=== PATIENT | male | born 1960 | race Caucasian/White ===

== ENCOUNTER 2023-06-05 05:23 | Inpatient (IN) | payer MEDICARE, SELFPAY ==
[2023-06-05] VITALS (18 sets, daily range): BP systolic 115–176; BP diastolic 71–127; PULSE 51–77; RESP 13–181; TEMP 36.2–36.7; O2SAT 94–98; BMI 25.9; BMI 26.0
--- NOTE | 2023-06-05 05:28 | EKG12_ITS ---
Test Reason : AM EKG Blood Pressure : / mmHG Vent. Rate : 062 BPM Atrial Rate : 062 BPM P-R Int : 150 ms QRS Dur : 092 ms QT Int : 420 ms P-R-T Axes : 073 061 077 degrees QTc Int : 426 ms Normal sinus rhythm Indeterminate axis Low voltage QRS Borderline ECG When compared with ECG of 05-JUN-2023 12:24, MANUAL COMPARISON REQUIRED, DATA IS UNCONFIRMED Confirmed by VIOLET FISH, NARENDRA ([id number]), assistant production editor CATALINA HEATON ([id number]) on 06/06/2023 12:57:47 PM Referred By: LISA Confirmed By:NARENDRA LAZO MD
--- NOTE | 2023-06-05 05:28 | RAD_ITS ---
INDICATION: chest pain EXAMINATION/TECHNIQUE: X-RAY - XR Chest 1 View COMPARISON: None. FINDINGS: LINES/DEVICES: None. LUNGS: No pulmonary edema or focal airspace consolidation. Small linear opacity left lower lung. No sizable pleural effusion. No pneumothorax detected. MEDIASTINUM AND CARDIOVASCULAR STRUCTURES: Heart size within normal limits. Mediastinal contours unremarkable. BONES AND SOFT TISSUES: No acute findings. RAD/Chest 1 View (Portable) IMPRESSION: Mild left basilar linear scarring versus atelectasis. Otherwise, no acute cardiopulmonary disease. Electronically Signed: Yaron Seay MD at 6:17 EDT ,
[2023-06-05 05:35] LABS: Absolute Lymphocyte Count 1.61 X10^3/uL (0.83-4.51); Basophil# 0.05 X10^3/uL; Basophil% 0.2 % (0-1); Eosinophil# 0.02 X10^3/uL; Eosinophils% 0.1 % (0-5); Hematocrit 51.9 % (40-54); Hemoglobin 17.8 g/dL (13.0-16.5); Lymphocyte # 1.61 X10^3/ul (0.83-4.51); Lymphocyte % 7.4 % (19-41); Mean Corp Hgb Conc 34.3 g/dL (32-36); Mean Corpuscular Hgb 30.5 pg (27.0-32.0); Mean Corpuscular Volume 88.9 fL (80-94); Mean Platelet Vol. 9.5 fl (6.2-12.0); Monocyte# 0.94 X10^3/uL; Monocyte% 4.3 % (0-10); NRBC Flagged by Analyzer 0 % (0-5); Neutrophil # 18.95 X10^3/uL (2.7-7.7); Neutrophil % 87.4 % (47-70); Platelet Count 387 K/mm3 (150-450); RBC Distribution Width CV 13.1 % (11.6-14.6); RBC Distribution Width SD 42.4 fl (35.1-43.9); Red Blood Count 5.84 M/mm3 (4.6-6.2); White Blood Count 21.7 K/mm3 (4.4-11.0)
[2023-06-05] MEDS: Ondansetron 4 MG/2 ML Vial IV (05:39)
[2023-06-05] MEDS: Aspirin 81 MG TAB.CHEW 324 MG PO (05:40)
--- NOTE | 2023-06-05 05:45 | CT_ITS ---
INDICATION: chest pain/ back pain EXAMINATION: CTA Chest and CTA Abdomen and Pelvis W/ Contrast Injection (and W/O Contrast Images if performed) TECHNIQUE: Helically acquired images were obtained of the chest, abdomen, and pelvis following IV contrast. CT angiogram protocol utilized with 2-D and 3-D reconstructions. A radiation dose optimization technique was used for this scan. IV Contrast dosage and agent: 100 cc [id number] Oral contrast: None. COMPARISON: None. FINDINGS: ----Chest: LUNGS, PLEURA AND LARGE AIRWAYS: No pulmonary edema, mass, consolidation or infiltrate. Mild linear scarring right middle lobe. Couple of punctate peripheral nodules within bilateral lower lobes, no larger than 4 mm and one of which is calcified (posterior left lung base). No significant pleural effusion or thickening. No pneumothorax. THYROID: Faint 5 mm enhancing versus calcified nodule within left lobe of thyroid gland. HEART AND PERICARDIUM: Heart size within normal limits. No significant pericardial effusion. VESSELS: No thoracic aortic aneurysm or dissection. Great vessels are patent with no significant stenosis. Aberrant right subclavian artery is retroesophageal in course. No pulmonary arterial filling defects identified. MEDIASTINUM AND RL: No mediastinal or hilar adenopathy. Esophagus is unremarkable. BONES: Intact with no suspicious osseous lesion. Adequate alignment of spine with preserved vertebral body heights and disc spaces. No significant spinal canal stenosis. ----Abdomen/Pelvis: LIVER: Fatty infiltration of liver. Small peripheral focus of patchy enhancement within anterior left lobe of liver measures up to 15 mm diameter, with small traversing vessel. Subcentimeter faint focus of enhancement within posterior right lobe of liver (segment 7, axial image 111). GALLBLADDER AND BILIARY TREE: No calcified gallstones. No significant biliary ductal dilation. PANCREAS: No discrete mass or peripancreatic edema. SPLEEN: Normal size without focal cystic or solid mass. ADRENAL GLANDS: Unremarkable. KIDNEYS AND URETERS: Normal renal size and position. No hydronephrosis. No concerning lesion. Simple appearing 12 mm cyst at lower pole of left kidney requiring no additional follow-up. PERITONEUM: No peritoneal free air or significant free fluid. No other fluid collection. BOWEL: Normal appendix posterior to cecum within right lower quadrant. No bowel obstruction or significant bowel thickening. No focal inflammatory change. LYMPH NODES: No enlarged mesenteric or retroperitoneal lymph nodes. VESSELS: Mild to moderate aortoiliac atherosclerosis with no aortic aneurysm or dissection. Aortic branch vessels with no significant stenosis. Patent celiac artery, superior mesenteric artery, bilateral renal arteries, inferior mesenteric artery and bilateral iliac arteries. URINARY BLADDER: Unremarkable as visualized. REPRODUCTIVE ORGANS: Slightly enlarged prostate gland with small dystrophic calcifications. ABDOMINAL WALL: No acute findings or significant hernia defect. BONES: Mild skeletal degenerative changes. Adequate alignment of spine with preserved vertebral body heights and disc spaces. No significant spinal canal stenosis. CT/CTA Chst, Abd, Pel W and/or WO IMPRESSION: 1. Atherosclerosis with no aortic aneurysm or dissection. Incidental finding of aberrant right subclavian artery, anatomic variant. 2. No evidence of acute intrathoracic abnormality. There are few punctate pulmonary nodules, one of which is calcified. Findings likely benign post infectious etiology with no additional follow-up recommended at this time. 3. Hepatic steatosis with couple small enhancing foci within liver. Differential includes benign transient hepatic attenuation difference, flash filling hemangiomas, or less likely hepatic neoplasm. Follow-up as clinically warranted. 4. Other nonurgent findings within body of report. Electronically Signed: Yaron Seay MD at 7:10 EDT ,
--- NOTE | 2023-06-05 05:47 | EDS_ITS ---
HPI History of Present Illness Chief Complaint: Chest Pain Narrative Narrative: 62-year-old male presenting with chest pain. He states is in the left upper chest but also radiates to the right side of the chest. He does admit to some radiation into his back as well. Patient states he just saw a primary care provider for the first time in years few weeks ago. He was started on a PPI for chronic intermittent heartburn. Patient states he is getting intermittent chest pains on the left side of his chest and this is associated with nausea and vomiting. He notes that Friday was the worst of this until overnight. Patient states he had a couple of beers last night and ate some pasta with chicken. He states that at about 10 PM last night he started having severe chest pain and has been vomiting. He states that with the chest pain comes the back pain. He states he has no medical problems. He states he has not lab work in a long time. He is a smoker and smokes a pack of cigarettes per day. No previous stress test. PE Risk Factors: Negative for Recent Travel/Surgery, Recent Immobilization, Prior DVT or PE, Cancer or OCP + Smoking + >/=35 PFSH PFSH Medical History no medical history Home Medications NK 06/05/23 [History Last Taken Unknown] Allergy/AdvReac Type Severity Reaction Status Date / Time No Known Allergies Allergy Verified 06/05/23 05:30 Surgical History no surgical history Social History Smoking Status: Current every day smoker tobacco type: cigarettes ROS ROS ED Constitutional Constitutional ED: Denies chills or fever(s) Eyes Eyes: Denies blurry vision or change in vision ENT ENT ED: Denies rhinorrhea or sore throat Cardiovascular Cardiovascular: Reports chest pain Respiratory/Chest Respiratory/Chest: Denies cough or dyspnea Gastrointestinal Gastrointestinal: Reports nausea and vomiting Genitourinary Genitourinary ED: Denies dysuria or hematuria Musculoskeletal Musculoskeletal: Denies arthralgias or back pain Integumentary Denies abscess Neurologic Neurologic: Denies headache(s) or paresthesias Psychiatric Psychiatric: Denies anxiety or depression EXAM Physical Exam Const Vital Signs: 06/05/23 05:24 06/05/23 05:24 06/05/23 05:50 Temperature 97.1 F L Temperature Source Temporal Pulse Rate 73 73 Respiratory Rate 18 Respiratory Effort Blood Pressure 175/127 H 171/91 H 176/101 H Blood Pressure Mean 143 117 Pulse Ox 97 Oxygen Delivery Method 06/05/23 05:58 06/05/23 06:08 06/05/23 05:28 Temperature Temperature Source Pulse Rate 68 71 Respiratory Rate Respiratory Effort Blood Pressure 137/91 H 137/85 H Blood Pressure Mean Pulse Ox Oxygen Delivery Method Room Air 06/05/23 05:28 06/05/23 06:24 Temperature Temperature Source Pulse Rate 51 L Respiratory Rate 16 Respiratory Effort Normal Non-Labored Blood Pressure 119/76 Blood Pressure Mean 90 Pulse Ox 97 Oxygen Delivery Method Room Air Positive well nourished General Appearance ED: NAD; Negative for pallor HEENT Reports TM's clear and moist mucous membranes normocephalic and atraumatic Tympanic Membrane ED: Yes TM's clear Eyes PERRL and EOMs intact bilaterally Chest Wall inspection of chest normal and palpation of chest normal Resp normal respiratory effort Auscultation: Negative for rales, rhonchi or wheezes Cardio regular rate and regular rhythm GI normal to inspection, nondistended, normoactive bowel sounds Back/Spine no CVA tenderness Neuro oriented x3 and CN's II-XII intact bilaterally Sensorium / Orientation: awake and alert Motor Exam: strength 5/5 throughout Psych mental status grossly normal Skin no rashes or lesions noted General Skin Exam: Negative for jaundice or pallor Heart Score History: Moderately Suspicious ECG: Normal Age: >45 - <65 years Risk Factors: 1 or 2 Risk Factors Troponin: >/=3 x Normal Limit Score: 5 MDM MDM MDM Narrative Medical decision making narrative: 62-year-old male presenting with nausea, being since 10 PM last night. He said chest pain on and off for few months and it sound like it got worse last Friday. Overnight he has been having severe chest pain which she states is 8 of 10. He is a smoker and does not know if he has any medical history because he has not had lab work often. He states he recently established with a new physician and was started on a PPI for chronic acid reflux problems. Differential includes but is not limited to STEMI, NSTEMI, CHF, PE, aortic dissection, pneumonia, Boerhaave's, pneumothorax, muscle strain, costochondritis. CBC to assess white blood cell count, hemoglobin, platelets, differential. BMP renal function, electrolytes, glucose, anion gap. LFTs to assess liver function. Lipase to assess for pancreatitis. Initially medicated with nitroglycerin which did not help his chest pain. He was then given 4 mg of morphine. I discussed him with Dr. Berumen given that his troponin was 6776. EKG shows a normal sinus rhythm with a ventricular rate of 72 bpm without sign of ST elevation or depression. EKG was reviewed with Dr. Berumen and does not show evidence of STEMI. CBC shows a leukocytosis of 21.7. Hemoglobin concentrated at 17.8. Platelets 387. Renal function and electrolytes otherwise unremarkable. LFTs and lipase unremarkable. Chest x-ray on my interpretation shows no acute cardiopulmonary process. Radiologist services and agrees. Since patient is having continued chest pain I did discuss this again with Dr. Berumen and he recommended taking him to the [facility]ation [facility]. I am awaiting a CTA chest abdomen pelvis but I do not see any evidence of dissection or PE on this. CTA chest on pelvis was interpreted by radiologist as negative for dissection or PE, but there is evidence of pulmonary nodules. Discussed with the hospitalist since the patient is going to the [facility]. Patient was started on heparin. He is already given aspirin. He started on nitroglycerin drip. I think the patient's white blood cell count is likely reactive as there is no other evidence of infection. His vital signs of been stable here. All questions were answered Impression: 1. Chest pain 2. NSTEMI 3. Nausea/vomiting 4. Pulmonary nodules Lab Data Attestation: I reviewed the patient's lab results. Labs: Laboratory Results - last 24 hr 06/05/23 05:28 WBC 21.7 H RBC 5.84 Hgb 17.8 H Hct 51.9 MCV 88.9 MCH 30.5 MCHC 34.3 RDW Std Deviation 42.4 RDW Coeff of Purnima 13.1 Plt Count 387 MPV 9.5 Immature Gran % (Auto) 0.600 Neut % (Auto) 87.4 H Lymph % (Auto) 7.4 L Real % (Auto) 4.3 Eos % (Auto) 0.1 Baso % (Auto) 0.2 Absolute Neuts (auto) 19.0 H Absolute Lymphs (auto) 1.61 Nucleated RBC % 0 PT 13.4 INR 1.0 APTT 29.5 Sodium 138 Potassium 4.1 Chloride 106 Carbon Dioxide 26.0 Anion Gap 6 BUN 15 Creatinine 1.03 Estim Creat Clear Calc 70.10 Est GFR (MDRD) Af Amer 93 Est GFR (MDRD) Non-Af 77 BUN/Creatinine Ratio 14.6 Glucose 145 H Calcium 9.1 Total Bilirubin 0.70 Direct Bilirubin 0.16 AST 77 H ALT 38 Alkaline Phosphatase 122 H Troponin I High Sens 6776 H* Total Protein 8.1 Albumin 4.5 Globulin 3.6 Lipase 43 Radiography Diagnostic Testing: Clinical Impression(s) from Imaging Studies Chest X-Ray 06/05/23 05:28 IMPRESSION: Mild left basilar linear scarring versus atelectasis. Otherwise, no acute cardiopulmonary disease. Electronically Signed: Yaron Seay MD at 6:17 EDT , Chest/Abdomen/Pelvis CTA 06/05/23 05:45 IMPRESSION: 1. Atherosclerosis with no aortic aneurysm or dissection. Incidental finding of aberrant right subclavian artery, anatomic variant. 2. No evidence of acute intrathoracic abnormality. There are few punctate pulmonary nodules, one of which is calcified. Findings likely benign post infectious etiology with no additional follow-up recommended at this time. 3. Hepatic steatosis with couple small enhancing foci within liver. Differential includes benign transient hepatic attenuation difference, flash filling hemangiomas, or less likely hepatic neoplasm. Follow-up as clinically warranted. 4. Other nonurgent findings within body of report. Electronically Signed: Yaron Seay MD at 7:10 EDT , Discharge Plan Triage Chief Complaint: Chest Pain ED Provider: Andrew Mathis Dx/Rx/DC Orders Primary Care Provider: Antoni Cooper
[2023-06-05] MEDS: Nitroglycerin SL (ED/IMG/CATH) 0.4 MG TABLET SL ×3 (05:50→06:08)
[2023-06-05 05:57] LABS: Anion Gap 6 (5-15); BUN 15 mg/dL (7-18); BUN/Creat Ratio 14.6 RATIO (10-20); Calcium,Total 9.1 mg/dL (8.5-10.1); Chloride 106 mmol/L (98-107); Creatinine, Serum 1.03 mg/dL (0.70-1.30); EST Glomerular Filtration Rate 77 mL/min (>60); Est Glom Filt Rate - Afr Amer 93 mL/min (>60); Glucose 145 mg/dL (74-106); Potassium 4.1 mmol/L (3.5-5.1); Sodium Level 138 mmol/L (136-145); Troponin-I HS (w/2H Reflex) 6776 pg/mL (3.0-78.0)
[2023-06-05 06:08] LABS: AST(SGOT) 77 U/L (15-37); Alanine Aminotransfer ALT/SGPT 38 U/L (16-61); Albumin, Serum 4.5 g/dL (3.2-5.0); Alkaline Phosphatase 122 U/L (45-117); Bilirubin, Direct 0.16 mg/dL (0.00-0.30); Globulin 3.6 g/dL (2.2-4.2); Lipase 43 U/L (13-75); Protein, Total 8.1 g/dL (6.4-8.2)
[2023-06-05] MEDS: Morphine 4 MG/ML Syringe IV (06:08)
[2023-06-05 06:16] LABS: Prothrombin Time (Protime)PT. 13.4 SECONDS (11.7-14.9)
[2023-06-05 06:17] LABS: Partial Thromboplast Time 29.5 Seconds (24.1-36.2)
--- NOTE | 2023-06-05 07:04 | NURSING ---
DR BERNARD FOR DR ALBERTO
--- NOTE | 2023-06-05 07:11 | NURSING ---
ICU 5 [facility]
--- NOTE | 2023-06-05 07:24 | ED.RN ---
Called report to [facility]
--- NOTE | 2023-06-05 07:25 | PCM.HP.STD ---
HPI - General General Date of Admission: 06/05/23 Date of Service: 06/05/23 Chief Complaint: Chest Pain HPI Narrative ERA HERNANDEZ, is a 62 M who presents [facility] Medical History (Updated 06/05/23 @ 07:[address] Marilou Ortiz, DO) Tobacco abuse Medical History no medical history Home Medications NK 06/05/23 [History Last Taken Unknown] Allergy/AdvReac Type Severity Reaction Status Date / Time No Known Allergies Allergy Verified 06/05/23 05:30 Surgical History no surgical history Social History Smoking Status: Current every day smoker tobacco type: cigarettes Vital Signs Vital Signs Vital Signs: 06/05/23 05:24 06/05/23 05:24 06/05/23 05:50 Temperature 97.1 F L Temperature Source Temporal Pulse Rate 73 73 Respiratory Rate 18 Respiratory Effort Blood Pressure 175/127 H 171/91 H 176/101 H Blood Pressure Mean 143 117 Pulse Ox 97 Oxygen Delivery Method 06/05/23 05:58 06/05/23 06:08 06/05/23 05:28 Temperature Temperature Source Pulse Rate 68 71 Respiratory Rate Respiratory Effort Blood Pressure 137/91 H 137/85 H Blood Pressure Mean Pulse Ox Oxygen Delivery Method Room Air 06/05/23 05:28 06/05/23 06:24 Temperature Temperature Source Pulse Rate 51 L Respiratory Rate 16 Respiratory Effort Normal Non-Labored Blood Pressure 119/76 Blood Pressure Mean 90 Pulse Ox 97 Oxygen Delivery Method Room Air Weight Weight: 77.564 kg Body Mass Index (BMI) 25.9 Results Lab / Micro Data 06/05/23 05:28 06/05/23 05:28 Labs: Laboratory Results - last 24 hr 06/05/23 05:28: WBC 21.7 H, RBC 5.84, Hgb 17.8 H, Hct 51.9, MCV 88.9, MCH 30.5, MCHC 34.3, RDW Std Deviation 42.4, RDW Coeff of Purnima 13.1, Plt Count 387, MPV 9.5, Immature Gran % (Auto) 0.600, Neut % (Auto) 87.4 H, Lymph % (Auto) 7.4 L, [place] % (Auto) 4.3, Eos % (Auto) 0.1, Baso % (Auto) 0.2, Absolute Neuts (auto) 19.0 H, Absolute Lymphs (auto) 1.61, Nucleated RBC % 0, PT 13.4, INR 1.0, APTT 29.5, Sodium 138, Potassium 4.1, Chloride 106, Carbon Dioxide 26.0, Anion Gap 6, BUN 15, Creatinine 1.03, Estim Creat Clear Calc 70.10, Est GFR (MDRD) Af Amer 93, Est GFR (MDRD) Non-Af 77, BUN/Creatinine Ratio 14.6, Glucose 145 H, Calcium 9.1, Total Bilirubin 0.70, Direct Bilirubin 0.16, AST 77 H, ALT 38, Alkaline Phosphatase 122 H, Troponin I High Sens 6776 H*, Total Protein 8.1, Albumin 4.5, Globulin 3.6, Lipase 43 Radiology Impression Chest X-Ray 06/05/23 05:28 IMPRESSION: Mild left basilar linear scarring versus atelectasis. Otherwise, no acute cardiopulmonary disease. Electronically Signed: Yaron Seay MD at 6:17 EDT , Chest/Abdomen/Pelvis CTA 06/05/23 05:45 IMPRESSION: 1. Atherosclerosis with no aortic aneurysm or dissection. Incidental finding of aberrant right subclavian artery, anatomic variant. 2. No evidence of acute intrathoracic abnormality. There are few punctate pulmonary nodules, one of which is calcified. Findings likely benign post infectious etiology with no additional follow-up recommended at this time. 3. Hepatic steatosis with couple small enhancing foci within liver. Differential includes benign transient hepatic attenuation difference, flash filling hemangiomas, or less likely hepatic neoplasm. Follow-up as clinically warranted. 4. Other nonurgent findings within body of report. 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 Hyperglycemia -No known history of diabetes -Check hemoglobin A1c -May be reactive Hepatic steatosis -Continue treatment of metabolic issues -We will recommend outpatient referral to gastroenterology Tobacco abuse -Recommend cessation -We will give the patient option for nicotine patch DVT prophylaxis -Lovenox subcu daily CODE STATUS Full code Charges/Coding Visit Charges Inpatient E&M: 44200 Init Hosp L2
[2023-06-05 07:32] LABS: Reflex Troponin-HS? (from REC) Y
--- NOTE | 2023-06-05 10:00 | EKG12_ITS ---
Test Reason : CP Blood Pressure : / mmHG Vent. Rate : 072 BPM Atrial Rate : 072 BPM P-R Int : 162 ms QRS Dur : 090 ms QT Int : 410 ms P-R-T Axes : 072 -30 030 degrees QTc Int : 448 ms Normal sinus rhythm Left axis deviation Low voltage QRS Cannot rule out Anteroseptal infarct , age undetermined Abnormal ECG Confirmed by LIVE FISH, ALEXIS ([id number]), video effects editor CATALINA HEATON ([id number]) on 06/09/2023 1:01:59 PM Referred By: Confirmed By:CHRISTIANO MANCINI MD
--- NOTE | 2023-06-05 10:01 | PCM.CONS.C ---
Assessment & Plan Assessment/Plan (1) NSTEMI, initial episode of care: PLAN: Treated with drug-eluting stent to the diagonal 1. Medical management for mild CAD in other vessels. Recommend aspirin, Brilinta, beta-victorina, statin. Check 2D echo to assess LV function. HPI Consult Data Date of Consult: 06/05/23 HPI Narrative Reason for Consultation: Non-STEMI HPI Narrative: ERA HERNANDEZ, is a 62 M who presents chest pain that has been going on since around 10 PM last night. His troponin was elevated, CT chest was negative for PE or dissection. He underwent urgent coronary angiography which revealed 100% occlusion of diagonal 1 that was treated with thrombectomy and drug-eluting stent placement. Patient's chest pain improved at the end of the procedure. He is being admitted to the CCU for further management of his non-STEMI. Review of systems: All systems reviewed. All system negative except that in [facility] Medical History (Updated 06/05/23 @ 09:51 by Kaycee Benitez) Acid reflux Hernia Tobacco abuse Medical History no medical history Home Medications NK 06/05/23 [History Last Taken Unknown] Allergy/AdvReac Type Severity Reaction Status Date / Time No Known Allergies Allergy Verified 06/05/23 05:30 Surgical History no surgical history Social History Smoking Status: Current every day smoker tobacco type: cigarettes Physical Exam Const alert and oriented x3 HEENT normocephalic Eyes no scleral icterus Resp normal respiratory effort Cardio regular rate Psych mental status grossly normal Risk Stratification Risk Stratification Applicable: No Charges/Coding Visit Charges Inpatient E&M: 08049 Init Hosp L2 Objective Data Vital Signs: Vital Signs Temp Pulse Resp BP Pulse Ox O2 Del Method 97.9 F 51 L 181 H 119/71 98 Room Air 06/05/23 07:25 06/05/23 07:25 06/05/23 07:25 06/05/23 07:25 06/05/23 07:25 06/05/23 07:25 Oxygen Delivery Method Room Air Weight: 171 lb 8.314 oz Body Mass Index (BMI) 26.0 Intake & Output: Intake and Output for Last 24 Hours 06/03/23 06/04/23 06/05/23 23:59 23:59 23:59 Intake Total 90 / 90 Balance 90 / 90 Lab / Micro Data 06/05/23 05:28 06/05/23 05:28 Labs: Laboratory Results - last 24 hr 06/05/23 05:28: WBC 21.7 H, RBC 5.84, Hgb 17.8 H, Hct 51.9, MCV 88.9, MCH 30.5, MCHC 34.3, RDW Std Deviation 42.4, RDW Coeff of Purnima 13.1, Plt Count 387, MPV 9.5, Immature Gran % (Auto) 0.600, Neut % (Auto) 87.4 H, Lymph % (Auto) 7.4 L, [place] % (Auto) 4.3, Eos % (Auto) 0.1, Baso % (Auto) 0.2, Absolute Neuts (auto) 19.0 H, Absolute Lymphs (auto) 1.61, Nucleated RBC % 0, PT 13.4, INR 1.0, APTT 29.5, Sodium 138, Potassium 4.1, Chloride 106, Carbon Dioxide 26.0, Anion Gap 6, BUN 15, Creatinine 1.03, Estim Creat Clear Calc 70.10, Est GFR (MDRD) Af Amer 93, Est GFR (MDRD) Non-Af 77, BUN/Creatinine Ratio 14.6, Glucose 145 H, Calcium 9.1, Total Bilirubin 0.70, Direct Bilirubin 0.16, AST 77 H, ALT 38, Alkaline Phosphatase 122 H, Troponin I High Sens 6776 H*, Total Protein 8.1, Albumin 4.5, Globulin 3.6, Lipase 43 Cardiology Labs/Tests 06/05/23 05:28: WBC 21.7 H, RBC 5.84, Hgb 17.8 H, Hct 51.9, MCV 88.9, MCH 30.5, MCHC 34.3, Plt Count 387, MPV 9.5, Immature Gran % (Auto) 0.600, Neut % (Auto) 87.4 H, Lymph % (Auto) 7.4 L, [place] % (Auto) 4.3, Eos % (Auto) 0.1, Baso % (Auto) 0.2, Absolute Neuts (auto) 19.0 H, Nucleated RBC % 0, PT 13.4, INR 1.0, APTT 29.5, Sodium 138, Potassium 4.1, Chloride 106, Carbon Dioxide 26.0, Anion Gap 6, BUN 15, Creatinine 1.03, Est GFR (MDRD) Af Amer 93, Est GFR (MDRD) Non-Af 77, BUN/Creatinine Ratio 14.6, Glucose 145 H, Calcium 9.1, Total Bilirubin 0.70, Direct Bilirubin 0.16 Rhythm: EKG: ECHO: Stress Test: Cardiac Cath: PCI: CT Surgery: Holter monitor: EPS: PPM: CXR: Chest CT Scan: Radiography Diagnostic Testing: Radiology Impression Chest X-Ray 06/05/23 05:28 IMPRESSION: Mild left basilar linear scarring versus atelectasis. Otherwise, no acute cardiopulmonary disease. Electronically Signed: Yaron Seay MD at 6:17 EDT , Chest/Abdomen/Pelvis CTA 06/05/23 05:45 IMPRESSION: 1. Atherosclerosis with no aortic aneurysm or dissection. Incidental finding of aberrant right subclavian artery, anatomic variant. 2. No evidence of acute intrathoracic abnormality. There are few punctate pulmonary nodules, one of which is calcified. Findings likely benign post infectious etiology with no additional follow-up recommended at this time. 3. Hepatic steatosis with couple small enhancing foci within liver. Differential includes benign transient hepatic attenuation difference, flash filling hemangiomas, or less likely hepatic neoplasm. Follow-up as clinically warranted. 4. Other nonurgent findings within body of report. Electronically Signed: Yaron Seay MD at 7:10 EDT ,
--- NOTE | 2023-06-05 10:30 | NURSING ---
patient came to floor on integrillin gtt no order placed, discussed with Dr. Berumen, order to D/C integrillin.
[2023-06-05] MEDS: 0.9% Normal Saline 1,000 ML 75 ML IV (10:48)
--- NOTE | 2023-06-05 10:49 | CL.I_ITS ---
Patient Name: ERA HERNANDEZ Study Date: 06/05/2023 Performing: Josey Berumen MD Ht: 68 inches 172.72 cm : 1960 Wt: 170.99 lbs 77.56 kg Age: 62 Gender: male BSA: 1.91 PROCEDURE(S) PERFORMED DC02-(33824)LHC/COR IC12-(28524/[id number])SABRINA W/WO PTCA, SINGLE CORONARY ARTERY IC17-(85344)CORONARY MECHANICAL THROMBECTOMY (ANGIOJET,PENUMBRA) CLINICAL PROFILE AND CO-MORBIDITIES Indications: ACS <= 24 hrs Heart Failure: None Stress/Imaging Stress/Image Study Performed: No CAD Presentations: Non-STEMI. Symptom onset Date/Time: 06/04/23 22:00:00 Time Estimated CONCLUSIONS CAD as described. No significant aortic stenosis. Successful thrombectomy and drug-eluting stent placement to diagonal 1. RECOMMENDATIONS DESCRIPTION OF PROCEDURE The patient arrived to the procedure lab. The risks and benefits of the procedure as well as a full description of our services here and lack of surgical backup were fully explained to the patient and/or their significant other prior to the catheterization. The Timeout was completed, verifying the correct patient and procedure. The patient's procedural site was prepped and draped in the usual fashion. Local anesthetic was given subcutaneously to right radial region with Lidocaine 2%. Using a modified Seldinger technique, arterial access was obtained via the right radial artery, a 6Fr sheath was inserted.. Left Coronary Artery selective angiography was performed in multiple views using a 5 Fr. JL3.5 catheter. Right Coronary Artery selective angiography was then performed in multiple views using a 5 Fr. JR 4 catheterThe images were reviewed and options discussed. A decision was then made to proceed with an Intervention, IVUS or other adjunct procedure. XB 3.0 Guide catheter was inserted and engaged into the LCA. BMW Guide wire was advanced to the 1st Diagonal. WHISPER Guide wire was advanced to the 1st Diagonal. Priority One inserted Pass # 1 Priority One Removed 2.0X12 EMERGE Balloon catheter was inserted. Balloon catheter was advanced across lesion in the first diagonal, proximal. PTCA balloon inflated at 8 atms for 12 secs. PTCA balloon inflated at 8 atms for 10 secs. 2.0X12 RESOLUTE Drug Eluting stent was inserted. Drug Eluting stent was advanced across the lesion in the first diagonal, proximal. Angiogram performed post stent deployment. The arterial sheath was pulled and a TR Band was applied for hemostasis-14 CC AIR CORONARY ANGIOGRAPHY DOMINANCE: Left Dominant LEFT HEART ASSESSMENT Likely aberrant right subclavian artery. LEFT MAIN: Mild luminal irregularities LEFT ANTERIOR DESCENDING ARTERY: Mild luminal irregularities DIAGONAL 1: Proximal - is occluded CIRCUMFLEX ARTERY: Mild luminal irregularities RAMUS: Mild luminal irregularities RIGHT CORONARY ARTERY: mild diffuse disease VALVE FINDINGS: No Aortic Valve Stenosis INTERVENTION INFORMATION LESION SITE: 1st Diagonal (Proximal) Lesion Complexity: High/C, chronic total occlusion: No, lesion at bifurcation: No, thrombus present: Yes, lesion length: 12 mm, culprit lesion: Yes, Previously treated lesion: No Pre Stenosis: 100 % Pre intervention ANDRE flow: 0 PROCEDURE: Thrombectomy (Aspiration and with penumbra device), Drug Eluting Stent with pre dilatation. Post Stenosis: 0 % Post intervention ANDRE flow: 3 Lesion Devices: Cordis 6 Fr XB3.0 100cm Guide Catheter Jeter .014 190cm BMW [place] Straight Jeter .014 190cm HT Whisper MS Straight Terumo Priority One Aspiration Catheter Penumbra Indigo Penumbra CAT Rx 140cm large lumen [place] EMERGE MR 2.00x12 BALLOON Medtronic Resolute [place] RX SABRINA 2.0x12 COMPLICATIONS No Complications PROCEDURE MEDICATIONS Fentanyl mcg IV Versed mg IV Oxygen: 2 L/min via nasal cannula Brilinta 180 mg PO @ 06/05/2023 08:36:45 Heparin given IA 06/05/2023 08:23:44 Heparin 3000 unit(s) IV 06/05/2023 08:42:12 Verapamil 2.5mg, Ntg 100mcgs, 3000 units of Heparin given IA 06/05/2023 08:23:44 SUMMARY OF HEMODYNAMIC DATA Time AIR REST ECG 07:43:54 LV 114/9, 16 08:27:02 AO 119/73 (94) SA 08:27:21 AO 119/73 (94) 08:27:21 Signed By Josey Berumen MD On 06/05/2023 14:03:48 Signed By Josey Berumen MD On 06/05/2023 10:48:38 Josey Berumen MD
--- NOTE | 2023-06-05 10:59 | ECHOCS_ITS ---
Reason For Study: Chest Pain Procedure This was a 2D Doppler, Color Flow transthoracic echocardiogram. The study was technically difficult. Contrast injection was performed. Exam performed portable in ICU/CCU. Left Ventricle Normal LV size. The estimated ejection fraction is 50-55 %. No evidence for diastolic dysfunction. Hypokinesis of the apical lateral and anterolateral campbell. Right Ventricle Normal RV size. Normal systolic function. Atria Normal left atrium. Normal right atrium. No doppler evidence for ASD. Mitral Valve There is no mitral valve stenosis. Trivial mitral valve insufficiency. Tricuspid Valve There is no tricuspid stenosis. Unable to estimate RV systolic pressure due to inadequate jet, pulmonary artery pressure probably normal. Aortic Valve Trisinus/trileaflet aortic valve. There is no aortic stenosis. No aortic valve insufficiency. Pulmonic Valve There is no pulmonic valvular stenosis. No pulmonic valve insufficiency. Great Vessels Normal aortic root. Pericardium/Pleural No pericardial effusion. Medication Diluted definity 2ml given slow IV push to enhance endocardial definition. MMode/2D Measurements & Calculations LVIDd: 4.5 cm IVSd: 0.87 cm Ao root diam: 3.2 cm LVIDs: 3.1 cm LVPWd: 0.98 cm LA dimension: 3.3 cm RVDd: 3.7 cm FS: 32.2 % LAV(MOD-bp): 26.6 ml LVAd ap4: 35.6 cm2 LVAd ap2: 28.8 cm2 LAV(MOD-bp) Indexed: 13.9 ml/m2 LVLd ap4: 8.0 cm LVLd ap2: 7.5 cm LAV(MOD-sp2): 32.3 ml EDV(MOD-sp4): 127.1 ml EDV(MOD-sp2): 91.2 ml LAV(MOD-sp4): 21.1 ml EDV(sp4-el): 134.3 ml EDV(sp2-el): 93.3 ml LVAs ap4: 21.1 cm2 LVAs ap2: 19.6 cm2 LVLs ap4: 6.9 cm LVLs ap2: 6.6 cm ESV(MOD-sp4): 52.0 ml ESV(MOD-sp2): 46.7 ml ESV(sp4-el): 54.7 ml ESV(sp2-el): 49.3 ml EF(MOD-sp4): 59.1 % EF(MOD-sp2): 48.8 % EF(sp4-el): 59.2 % SV(MOD-sp4): 75.2 ml SV(MOD-sp2): 44.5 ml SV(sp4-el): 79.6 ml LA A4 area: 10.7 cm2 RA A4 area: 11.4 cm2 Time Measurements MV dec time: 0.18 sec Doppler Measurements & Calculations MV E max jose: 92.0 cm/sec Lat Peak E' Jose: 9.9 cm/sec Med Peak E' Jose: 9.7 cm/sec MV A max jose: 129.5 cm/sec E/E' lat: 9.3 E/E' med: 9.5 MV E/A: 0.71 MV V2 max: 118.6 cm/sec MV P1/2t max jose: 110.3 cm/sec Ao V2 max: 121.4 cm/sec MV max P.6 mmHg MV P1/2t: 98.2 msec Ao max P.9 mmHg MV V2 mean: 57.1 cm/sec MV mean P.6 mmHg MV dec slope: 329.0 cm/sec2 MV V2 VTI: 40.5 cm MVA(P1/2t): 2.2 cm2 LV V1 max: 124.3 cm/sec PA V2 max: 89.9 cm/sec TR max jose: 264.2 cm/sec LV V1 max P.2 mmHg PA V2 mean: 62.9 cm/sec TR max P.9 mmHg ECHO/Echo Complete W/ Contrast Interpretation Summary The estimated ejection fraction is 50-55 %. No evidence for diastolic dysfunction. Trivial mitral valve insufficiency. Ordering Physician: Marilou Ortiz Performed By: Dionicio Sawyer and Student
[2023-06-05] MEDS: Carvedilol 3.125 MG TABLET PO ×2 (11:12→21:57)
--- NOTE | 2023-06-05 11:18 | CRPHASE1_ITS ---
Patient Communication Patient Information PHII Cardiac Rehab Discussed with Patient:: Yes Guide to Cardiac Rehab Given to Patient:: Yes Cardiac Rehab Facility Choice List Given to Patient:: Yes Communication to Cardiac Rehab Choice Program [facility] CR PHII:: Communication Given to CR [employer] Services Counselor:: Norma Berumen Phase II Cardiac Rehab:: Yes Sessions:: 36 sessions - 3 days/wk, 12 weeks Cardiac Rehabilitation Info Program Information Cardiac Rehabilitation Program Information: Cardiac Rehab The cardiac rehab team at [facility] consists of highly skilled exercise physiologists, nurses, respiratory therapists and physicians working together with you. Our purpose is to help you have a full recovery and achieve the goals you set for yourself. Over the years many of our patients have returned to activities they assumed they would never do again! We can help restore your confidence and motivation to make lifestyle changes that can have a significant impact on your health and quality of life! We can help answer questions and concerns you may have about exercise, lifestyle, medications, diet, stress and anxiety which are common following a hospitalization. WE monitor ECG and vital signs during exercise and discuss your progress with you and report to your physician(s). Cardiac Rehab is proven to help reduce readmissions, improve functional capacity and lower recurrence of problems with your heart. Our Cardiac Rehab program is Certified by the [place] [employer]-V[employer] Pulmonary [employer] (AACVPR) and Accredited by the [place] [employer] through our [facility]. You can contact us at . We invite you to call us with your questions or to get started in our program. If you have other questions or concerns be sure to ask your physician/provider during your follow-up visit. WE look forward to seeing you!
--- NOTE | 2023-06-05 11:20 | CRPH1.INSTRU ---
General Education Discussed with Patient CAD and cardiac anatomy and function:: Patient communicates acknowledgment and Family communicates acknowledgment Explanation of diagnoses and procedures:: Patient communicates acknowledgment and Family communicates acknowledgment Sign/Symptoms of DE:: Patient communicates acknowledgment and Family communicates acknowledgment Antiplatelet therapy: Patient communicates acknowledgment and Family communicates acknowledgment Proper use of NTG-SL: Patient communicates acknowledgment and Family communicates acknowledgment Emergency procedures and activation of EMS: Patient communicates acknowledgment and Family communicates acknowledgment Compliance of all prescribed medications: Patient communicates acknowledgment and Family communicates acknowledgment Smoking Risk Factors Patient Nicotine/Smoking Risk Factors Are:: Cigarettes Recommendations Recommendations Include:: Smoking cessation strategies/Smoking packet and Participation in a smoking cessation program Response Code Nicotine/Smoking Response Code:: Patient communicates acknowledgment and Family communicates acknowledgment Dyslipidemia Risk Factors Patient Dyslipidemia Risk Factors Are:: Total Cholesterol, Triglycerides, HDL and LDL Recommendations Recommendations Include:: Lipid profile not available and Therapeutic Lifestyle Change dietary guidelines Response Code Dyslipidemia Response Code:: Patient communicates acknowledgment and Family communicates acknowledgment Overweight/Obesity Risk Factors Patient Overweight/Obesity Risk Factors Are:: BMI Normal [24-29 & > 65 years old] Recommendations Recommendations Include:: Weight loss of 5-10%, Reduced calorie diet and Exercise 5-7 times/week Response Code Overweight/Obesity:: Patient communicates acknowledgment and Family communicates acknowledgment Hypertension Response Code Hypertension:: Patient communicates acknowledgment and Family communicates acknowledgment Diabetes Risk Factors Patient Diabetes Risk Factors Are:: No documented hx of diabetes Stress Recommendations Recommendations Include:: Identification of stressors, and assessment of coping skills and Stress management techniques Response Code Stress Response Code:: Patient communicates acknowledgment and Family communicates acknowledgment
[2023-06-05 11:50] LABS: Cholesterol 201 mg/dL (200); Hemoglobin A1c 5.2 % (3.8-5.6); High Density Lipoprotein 40 mg/dL; Triglycerides 119 mg/dL; Very Low Density Lipoprotein 24 mg/dL (5-40)
[2023-06-05] MEDS: Enoxaparin 40 MG/0.4 ML Syringe SC (12:31)
--- NOTE | 2023-06-05 12:51 | PCM.HP.STD ---
HPI - General General Date of Admission: 06/05/23 Date of Service: 06/05/23 Chief Complaint: Chest Pain HPI Narrative ERA HERNANDEZ, is a 62 M who presented to the emergency department at [facility] early on the morning of 06/05/2023 complaining of chest pain that was located in his left upper chest and radiated to the right side and into his back. He reported he had pain the night prior but it resolved and then returned the night prior to presentation. He had associated nausea and vomiting but denied any diaphoresis or shortness of breath. He reported that last evening he had a couple beers and ate some pasta with chicken and at 10 PM as what time he started having severe chest pain and vomiting. He has not followed with a physician in a long time but recently did see 1 a few weeks ago at which time they placed him on a PPI for heartburn. He admits to smoking a pack of cigarettes a day. He does not acknowledge any family history of cardiac disease and has no personal history or risk factors that are known. Vital signs on presentation demonstrated temperature of 97.1, heart rate 73, blood pressure 175/127 with repeat at 171/91, respiratory rate 18 and oxygen saturation 97% on room air. CBC showed a leukocytosis and erythrocytosis with a white count of 21.7 and a hemoglobin of 17.8. I suspect these are contraction related and should resolve with fluids and normalized oral intake. Coags were normal. His chemistry panel was unremarkable other than hyperglycemia with a glucose of 145. AST was elevated at 77 but ALT was normal. His initial troponin was 6776. EKG did not show a STEMI. Chest x-ray demonstrated mild left basilar linear scarring versus atelectasis. A CTA of his chest was performed and showed atherosclerotic disease with no aneurysm or dissection, aberrant right subclavian artery, no evidence of intrathoracic abnormality other than a few punctate pulmonary nodules which are calcified and hepatic steatosis. The patient was having ongoing chest pain despite nitroglycerin and was taken urgently to the [facility] this morning. [facility] Medical History Acid reflux Hernia Tobacco abuse Medical History no medical history Home Medications NK 06/05/23 [History Last Taken Unknown] Allergy/AdvReac Type Severity Reaction Status Date / Time No Known Allergies Allergy Verified 06/05/23 05:30 Family History no significant family his no significant family history Surgical History (Updated 06/05/23 @ 12:[address] Marilou Ortiz DO) H/O right inguinal hernia repair Surgical History no surgical history Social History (Updated 06/05/23 @ 12:[address] Marilou Ortiz DO) Smoking Status: Current every day smoker tobacco type: cigarettes Smoking packs per day: 1 Smoking cigarettes per day: 20.0 alcohol intake: current alcohol intake frequency: a few times a month substance use type: does not use ROS Constitutional Constitutional: Denies anorexia, change in weight, chills, fatigue, fever(s), malaise, night sweats, weakness or other Eyes Eyes: Denies blurry vision, change in eye color, change in vision, discharge from eye(s), double vision, erythema, eye pain, loss of vision or other ENT HEENT: Denies abnormal hearing, dysphagia, ear pain, epistaxis, headache(s), hearing loss, nasal congestion, nasal discharge, post nasal drip, sinus pressure, sore throat or other Cardiovascular Cardiovascular: Reports chest pain; Denies claudication, dyspnea on exertion, edema, lightheadedness, orthopnea, palpitations, paroxysmal nocturnal dyspnea, rapid heart rate, syncope or other Respiratory/Chest Respiratory/Chest: Denies cough, dyspnea, excessive phlegm production, hemoptysis, productive cough, shortness of breath at rest, shortness of breath with exertion, wheezing or other Gastrointestinal Gastrointestinal: Reports nausea and vomiting; Denies abdominal pain, coffee ground emesis, constipation, diarrhea, dyspepsia, hematemesis, hematochezia, loose stools, melena or other Genitourinary Genitourinary: Denies burning urination, difficulty urinating, dysuria, hematuria, nocturia, urinary frequency, urinary hesitancy, urinary incontinence, urinary urgency or other Musculoskeletal Musculoskeletal: Reports back pain; Denies arthralgias, joint pain, joint stiffness, joint swelling, myalgias, neck pain or other Neurologic Neurologic: Denies abnormal gait, abnormal speech, confusion, disequilibrium, dizziness, focal weakness, headache(s), numbness, paresthesias, seizure-like activity, seizures, syncope, tingling, tremor(s) or other Psychiatric Psychiatric: Denies anxiety, depression, homicidal ideation, suicidal ideation or other Endocrine Endocrinology: Denies change in body appearance, cold intolerance, excessive sweating, heat intolerance, polydipsia, polyuria or other Hematologic/Lymphatic Hematologic/Lymphatic: Denies anemia, easy bleeding, easy bruising, lymphadenopathy or other Allergic/Immunologic Allergic/Immunologic: Denies rhinitis, hives, eczemia, asthma or other Vital Signs Vital Signs Vital Signs: 06/05/23 05:24 06/05/23 05:24 06/05/23 05:50 Temperature 97.1 F L Temperature Source Temporal Pulse Rate 73 73 Pulse Strength Respiratory Rate 18 Respiratory Effort Blood Pressure 175/127 H 171/91 H 176/101 H Blood Pressure Mean 143 117 Blood Pressure Source Blood Pressure Position Blood Pressure Location Pulse Ox 97 Oxygen Delivery Method 06/05/23 05:58 06/05/23 06:08 06/05/23 05:28 Temperature Temperature Source Pulse Rate 68 71 Pulse Strength Respiratory Rate Respiratory Effort Blood Pressure 137/91 H 137/85 H Blood Pressure Mean Blood Pressure Source Blood Pressure Position Blood Pressure Location Pulse Ox Oxygen Delivery Method Room Air 06/05/23 05:28 06/05/23 06:24 06/05/23 07:25 Temperature 97.9 F Temperature Source Temporal Pulse Rate 51 L 51 L Pulse Strength Respiratory Rate 16 181 H Respiratory Effort Normal Non-Labored Blood Pressure 119/76 119/71 Blood Pressure Mean 90 87 Blood Pressure Source Blood Pressure Position Blood Pressure Location Pulse Ox 97 98 Oxygen Delivery Method Room Air Room Air 06/05/23 09:58 06/05/23 10:00 06/05/23 10:15 Temperature Temperature Source Pulse Rate 70 68 Pulse Strength Normal (2+) Respiratory Rate 14 14 Respiratory Effort Blood Pressure 152/92 H 155/92 H Blood Pressure Mean 112 113 Blood Pressure Source Monitor Monitor Blood Pressure Position Semi-Fowlers Semi-Fowlers Blood Pressure Location Left Arm Left Arm Pulse Ox 96 97 Oxygen Delivery Method Room Air Room Air 06/05/23 10:30 06/05/23 10:45 06/05/23 11:00 Temperature Temperature Source Pulse Rate 65 62 61 Pulse Strength Respiratory Rate 17 14 13 Respiratory Effort Blood Pressure 148/93 H 148/93 H 157/95 H Blood Pressure Mean 111 111 115 Blood Pressure Source Monitor Monitor Monitor Blood Pressure Position Semi-Fowlers Semi-Fowlers Semi-Fowlers Blood Pressure Location Left Arm Left Arm Left Arm Pulse Ox 97 97 96 Oxygen Delivery Method Room Air Room Air Room Air 06/05/23 11:15 06/05/23 12:00 06/05/23 11:30 Temperature 98.0 F Temperature Source Temporal Pulse Rate 63 62 61 Pulse Strength Respiratory Rate 14 16 14 Respiratory Effort Blood Pressure 157/95 H 146/88 H 152/85 H Blood Pressure Mean 115 107 107 Blood Pressure Source Monitor Monitor Monitor Blood Pressure Position Semi-Fowlers Semi-Fowlers Semi-Fowlers Blood Pressure Location Left Arm Left Arm Left Arm Pulse Ox 97 94 97 Oxygen Delivery Method Room Air Room Air Room Air Weight Weight: 77.8 kg Body Mass Index (BMI) 26.0 Physical Exam Const alert, oriented x3, no apparent distress, average body habitus and well nourished Constitutional Narrative: Upper middle-aged, white male, sitting up in bed, appears comfortable and nontoxic, nursing at bedside HEENT normocephalic and head/scalp atraumatic HEENT Narrative: Mallampati 2-3, no thrush, dentition is good for age Eyes PERRL, EOMs intact bilaterally and conjunctivae normal Eyes Narrative: No scleral icterus Neck no lymphadenopathy and supple Neck Narrative: Trachea midline, no thyroid enlargement Resp normal respiratory effort, no retractions, no use of accessory muscles and clear to auscultation bilaterally Resp Narrative: Diffusely diminished but clear Auscultation: Negative for rales, rhonchi or wheezes Cardio regular rate, regular rhythm, S1 normal heart sound, S2 normal heart sound, no murmurs, no rub, no gallops and no clicks Cardio Narrative: No ectopy GI normal to inspection, nondistended, normoactive bowel sounds, soft to palpation and non-tender Extremity no clubbing, cyanosis or edema Extremity Narrative: Pedal pulses are 2+, right radial artery compressive devices in place post catheterization Skin skin turgor normal, no jaundice, no petechiae and no mottling Neuro oriented x3, CN's II-XII intact bilaterally, moves all extremities and no focal motor deficits Speech: speech normal Motor Exam: strength 5/5 throughout Psych affect normal Psych Narrative: Very pleasant, appropriately interactive Results Lab / Micro Data 06/05/23 05:28 06/05/23 05:28 Labs: Laboratory Results - last 24 hr 06/05/23 05:28: WBC 21.7 H, RBC 5.84, Hgb 17.8 H, Hct 51.9, MCV 88.9, MCH 30.5, MCHC 34.3, RDW Std Deviation 42.4, RDW Coeff of Purnima 13.1, Plt Count 387, MPV 9.5, Immature Gran % (Auto) 0.600, Neut % (Auto) 87.4 H, Lymph % (Auto) 7.4 L, [place] % (Auto) 4.3, Eos % (Auto) 0.1, Baso % (Auto) 0.2, Absolute Neuts (auto) 19.0 H, Absolute Lymphs (auto) 1.61, Nucleated RBC % 0, PT 13.4, INR 1.0, APTT 29.5, Sodium 138, Potassium 4.1, Chloride 106, Carbon Dioxide 26.0, Anion Gap 6, BUN 15, Creatinine 1.03, Estim Creat Clear Calc 70.10, Est GFR (MDRD) Af Amer 93, Est GFR (MDRD) Non-Af 77, BUN/Creatinine Ratio 14.6, Glucose 145 H, Calcium 9.1, Total Bilirubin 0.70, Direct Bilirubin 0.16, AST 77 H, ALT 38, Alkaline Phosphatase 122 H, Troponin I High Sens 6776 H*, Total Protein 8.1, Albumin 4.5, Globulin 3.6, Lipase 43 06/05/23 11:15: Hemoglobin A1c 5.2, Triglycerides 119, Cholesterol 201 H, LDL Cholesterol 137 H, VLDL Cholesterol 24, HDL Cholesterol 40 Radiology Impression Chest X-Ray 06/05/23 05:28 IMPRESSION: Mild left basilar linear scarring versus atelectasis. Otherwise, no acute cardiopulmonary disease. Electronically Signed: Yaron Seay MD at 6:17 EDT , Chest/Abdomen/Pelvis CTA 06/05/23 05:45 IMPRESSION: 1. Atherosclerosis with no aortic aneurysm or dissection. Incidental finding of aberrant right subclavian artery, anatomic variant. 2. No evidence of acute intrathoracic abnormality. There are few punctate pulmonary nodules, one of which is calcified. Findings likely benign post infectious etiology with no additional follow-up recommended at this time. 3. Hepatic steatosis with couple small enhancing foci within liver. Differential includes benign transient hepatic attenuation difference, flash filling hemangiomas, or less likely hepatic neoplasm. Follow-up as clinically warranted. 4. Other nonurgent findings within body of report. Electronically Signed: Yaron Seay MD at 7:10 EDT , Assessment & Plan Assessment/Plan (1) Hepatic steatosis: (2) Leukocytosis: (3) Hyperglycemia: (4) NSTEMI, initial episode of care: PLAN: Plan NSTEMI -Cardiology taking pt to the [facility] immediately -initial trop>6000 -Start aspirin 81 mg daily -Start atorvastatin 80 mg daily -Beta-victorina and lisinopril per cardiology -Check lipids -Check hemoglobin A1c -Cardiac rehab -Recommend smoking cessation -Cardiology following-appreciate input Leukocytosis -Suspect reactive and dehydration -Repeat CBC in a.m. Hyperglycemia -No known history of diabetes -Check hemoglobin A1c -May be reactive Hepatic steatosis -Continue treatment of metabolic issues -We will recommend outpatient referral to gastroenterology Tobacco abuse -Recommend cessation -We will give the patient option for nicotine patch DVT prophylaxis -Lovenox subcu daily CODE STATUS Full code Charges/Coding Visit Charges Inpatient E&M: 10721 Init Hosp L2
--- NOTE | 2023-06-05 15:00 | NURSING ---
Pt without void since admission. Bladder scan volume greater than 748 ml. Pt to bathroom w/ assist and voided.
[2023-06-05] MEDS: Atorvastatin Calcium 80 MG Tablet PO (21:57)
[2023-06-05] MEDS: TICAGRELOR 90 MG TABLET PO (21:57)
[2023-06-06] VITALS (17 sets, daily range): BP systolic 100–123; BP diastolic 59–83; PULSE 57–77; RESP 14–26; TEMP 36.4–36.6; O2SAT 93–97; BMI 26.9
[2023-06-06 05:01] LABS: Absolute Lymphocyte Count 2.59 X10^3/uL (0.83-4.51); Absolute Neutrophil Count 12.5 X10^3/uL (2.0-7.7); Basophil# 0.03 X10^3/uL; Basophil% 0.2 % (0-1); Eosinophil# 0.11 X10^3/uL; Eosinophils% 0.7 % (0-5); Hematocrit 43.9 % (40-54); Hemoglobin 15.5 g/dL (13.0-16.5); Lymphocyte # 2.59 X10^3/ul (0.83-4.51); Lymphocyte % 15.4 % (19-41); Mean Corp Hgb Conc 35.3 g/dL (32-36); Mean Corpuscular Volume 87.8 fL (80-94); Mean Platelet Vol. 9.7 fl (6.2-12.0); Monocyte# 1.54 X10^3/uL; Monocyte% 9.1 % (0-10); NRBC Flagged by Analyzer 0 % (0-5); Neutrophil # 12.51 X10^3/uL (2.7-7.7); Neutrophil % 74.1 % (47-70); POSITIVE DIFFERENTIAL YES; Platelet Count 320 K/mm3 (150-450); RBC Distribution Width CV 13.4 % (11.6-14.6); RBC Distribution Width SD 43.3 fl (35.1-43.9); White Blood Count 16.9 K/mm3 (4.4-11.0)
[2023-06-06 05:08] LABS: Differential Indicated SCAN CRITERIA MET
[2023-06-06 05:26] LABS: Phosphorus 2.8 mg/dL (2.5-4.9)
[2023-06-06 05:33] LABS: ALB/GLOB Ratio 1.3 RATIO (0.9-2.4); AST(SGOT) 203 U/L (15-37); Alanine Aminotransfer ALT/SGPT 52 U/L (16-61); Albumin, Serum 3.4 g/dL (3.2-5.0); Alkaline Phosphatase 95 U/L (45-117); Anion Gap 4 (5-15); BUN 14 mg/dL (7-18); BUN/Creat Ratio 13.7 RATIO (10-20); Calcium,Total 8.3 mg/dL (8.5-10.1); Chloride 109 mmol/L (98-107); Creatinine, Serum 1.02 mg/dL (0.70-1.30); EST Glomerular Filtration Rate 78 mL/min (>60); Est Glom Filt Rate - Afr Amer 94 mL/min (>60); Estimated Creatinine Clearance 70.78 ml/min; Globulin 2.6 g/dL (2.2-4.2); Glucose 98 mg/dL (74-106); Magnesium 2.1 mg/dL (1.6-2.6); Potassium 4.4 mmol/L (3.5-5.1); Sodium Level 141 mmol/L (136-145); Thyroid Stim Hormone (TSH) 1.36 uIU/mL (0.358-3.74)
[2023-06-06 06:14] LABS: Differential Comment SCANNED
[2023-06-06] MEDS: TICAGRELOR 90 MG TABLET PO (07:46)
[2023-06-06] MEDS: Aspirin E.C. 81 MG Tablet PO (07:46)
[2023-06-06] MEDS: Carvedilol 3.125 MG TABLET PO (07:46)
--- NOTE | 2023-06-06 10:00 | EKG12_ITS ---
Test Reason : S/P CARDIAC CATH Blood Pressure : / mmHG Vent. Rate : 058 BPM Atrial Rate : 058 BPM P-R Int : 156 ms QRS Dur : 094 ms QT Int : 446 ms P-R-T Axes : 085 091 051 degrees QTc Int : 437 ms Sinus bradycardia Otherwise normal ECG When compared with ECG of 05-JUN-2023 05:23, MANUAL COMPARISON REQUIRED, DATA IS UNCONFIRMED Confirmed by LIVE FISH, ALEXIS ([id number]), editor & co founder CATALINA HEATON ([id number]) on 06/09/2023 1:23:59 PM Referred By: LIVE Confirmed By:CHRISTIANO MANCINI MD
--- NOTE | 2023-06-06 12:26 | PCM.DC.SUM ---
Providers Date of Admission: 06/05/23 Date of Discharge: 06/06/23 Primary Care Physician: Dr. Antoni Cooper, Consultations 06/05/23 07:24 Consult: Cardiology Stat Consulting Provider: Norma Berumen Reason for Consult: Chest Pain EMERGENT Consult: No MD Notified: Yes Date Notified: 06/05/23 Time Notified: 07:22 Method of Notification: ED Physician Initiated Reason For Visit: NSTEMI Diagnosis Discharge Diagnosis (1) Hepatic steatosis: Status: Acute Code(s): K76.0 - Fatty (change of) liver, not elsewhere classified (2) Leukocytosis: Status: Acute Code(s): D72.829 - Elevated white blood cell count, unspecified (3) Hyperglycemia: Status: Acute Code(s): R73.9 - Hyperglycemia, unspecified (4) NSTEMI, initial episode of care: Status: Acute Code(s): I21.4 - Non-ST elevation (NSTEMI) myocardial infarction Plan NSTEMI -Cardiology taking pt to the [facility] immediately -initial trop>6000 -Start aspirin 81 mg daily -Start atorvastatin 80 mg daily -Beta-can and lisinopril per cardiology -Check lipids -Check hemoglobin A1c -Cardiac rehab -Recommend smoking cessation -Cardiology following-appreciate input Leukocytosis -Suspect reactive and dehydration -Repeat CBC in a.m. Hyperglycemia -No known history of diabetes -Check hemoglobin A1c -May be reactive Hepatic steatosis -Continue treatment of metabolic issues -We will recommend outpatient referral to gastroenterology Tobacco abuse -Recommend cessation -We will give the patient option for nicotine patch DVT prophylaxis -Lovenox subcu daily CODE STATUS Full code Medications at Discharge Home Medications aspirin 81 mg tablet,delayed release 81 mg PO BREAKFAST #0 tabs 06/06/23 atorvastatin 80 mg tablet 80 mg PO QHS #30 tabs 06/06/23 carvedilol 3.125 mg tablet 3.125 mg PO BID #60 tabs 06/06/23 ticagrelor 90 mg tablet (Brilinta) 90 mg PO BID #60 tabs 06/06/23 Hospital Course Operations None Procedures 2-D Echocardiogram, Cardiac catheterization, EKG and - (Chest x-ray/CTA of chest abdomen and pelvis) Summary of Care Provided Minutes Spent on Discharge: 38 Hospital Course: Mr. Georges is a 62-year-old white male who presented to the emergency department at [facility] early on the morning of 06/05/2023 complaining of chest pain that was located in his left upper chest and radiated to the right side and into his back. He reported he had the pain night before but it had resolved and then returned on the night prior to his presentation. He had associated nausea and vomiting but denied any diaphoresis or shortness of breath. He reported that the evening prior to coming to the emergency department he had a couple of beers and ate pasta with chicken and at 10 PM he started having severe chest pain and vomiting. He reported he had not been following with a physician for a long period of time but did see one a few weeks ago at which time they placed him on a PPI for heartburn. He admitted to smoking a pack of cigarettes daily and had no previous family history of cardiac disease that he was aware. Vital signs on presentation demonstrated temperature of 97.1, heart rate 73, blood pressure 175/127 with repeat at 171/91, respiratory rate 18 and oxygen saturation 97% on room air. CBC showed a leukocytosis and erythrocytosis with a white count of 21.7 and a hemoglobin of 17.8. I suspect these are contraction related and should resolve with fluids and normalized oral intake. Coags were normal. His chemistry panel was unremarkable other than hyperglycemia with a glucose of 145. AST was elevated at 77 but ALT was normal. His initial troponin was 6776. EKG did not show a STEMI. Chest x-ray demonstrated mild left basilar linear scarring versus atelectasis. A CTA of his chest was performed and showed atherosclerotic disease with no aneurysm or dissection, aberrant right subclavian artery, no evidence of intrathoracic abnormality other than a few punctate pulmonary nodules which are calcified and hepatic steatosis. He had ongoing unresolved chest pain so he was taken to cardiac catheterization lab at which time he was found to have an occlusion in the proximal first diagonal which was treated with thrombectomy and drug-eluting stent placement. He was noted to have a right aberrant subclavian artery. His left main showed mild luminal irregularities, LAD had mild luminal irregularities, circumflex had mild luminal irregularities, ramus had mild luminal irregularities in the right coronary artery had mild diffuse disease. No aortic stenosis was identified. He was taken to the ICU from the [facility] and placed on aspirin, high intensity dose statin, Brilinta, and a beta-can. His blood pressure was not all that elevated so JER inhibitor was deferred and will be reevaluated for initiation after discharge. Patient had no arrhythmias on telemetry. Echocardiogram was performed and demonstrated an EF of 50 to 55% with no evidence of diastolic dysfunction and trivial mitral valve insufficiency. He was hyperglycemic on presentation with a glucose of 145 so we did obtain a hemoglobin A1c which was found to be 5.2. A lipid panel was performed and showed a total cholesterol of 201/LDL 137/HDL 40/triglycerides 119. We did discuss extensively about smoking cessation for the patient he voiced understanding and indicated his daughter was a nurse and has been hounding him for years. He states he has more motivation now with current events and plans to make attempts. He states he was given medication at home but he just had not yet started it. I have advised him to start this and stop smoking. He has a follow-up with cardiology on June 20 at 1 PM. I have recommended that he follow-up with his primary care physician within the next month. Patient was able to be discharged home with prescriptions for aspirin, Brilinta, atorvastatin, and Coreg which were faxed to his local pharmacy. Discharge diagnoses: NSTEMI Hyperlipidemia Hypertension Hepatic steatosis Leukocytosis-suspect reactive-resolving Tobacco abuse Patient did very well overnight, much better than clinically expected, and was anxious to go home. I discussed the case with cardiology and they felt since he had no arrhythmias and he was medically stable that we could send him home with close follow-up as an outpatient. He improved more quickly than anticipated. Physical Exam Narrative No overnight arrhythmias. Patient states he is feeling well. Anxious to go home today Const alert, oriented x3, no apparent distress, no limitations and well nourished Constitutional Narrative: Upper middle-aged, white male, sitting up in bed talking on his cell phone, appears comfortable and nontoxic General Appearance: cooperative, comfortable, well kempt and well developed Orientation / Consciousness: awake, oriented to person, oriented to place and oriented to time Exam Limitations: no limitations Nutritional Appearance: overweight HEENT normocephalic, head/scalp atraumatic and hearing grossly normal bilaterally HEENT Narrative: Dentition is fair, Mallampati is 2, no thrush Eyes PERRL, EOMs intact bilaterally and conjunctivae normal Eyes Narrative: No scleral icterus Neck no lymphadenopathy and supple Neck Narrative: Trachea midline, no thyroid enlargement Resp normal respiratory effort, no retractions, no use of accessory muscles and clear to auscultation bilaterally Resp Narrative: Diffusely diminished but clear Auscultation: Negative for rales, rhonchi or wheezes Cardio regular rate, regular rhythm, S1 normal heart sound, S2 normal heart sound, no murmurs, no rub, no gallops and no clicks Cardio Narrative: No ectopy GI normal to inspection, nondistended, normoactive bowel sounds, soft to palpation and non-tender Extremity no clubbing, cyanosis or edema Extremity Narrative: Pedal pulses are 2+, skin over right radial artery appears to be healing well without any signs of ecchymosis or significant tenderness Skin no rashes or lesions noted, no wounds, skin turgor normal, no jaundice, no petechiae and no mottling Neuro oriented x3, CN's II-XII intact bilaterally, moves all extremities and no focal motor deficits Speech: speech normal Motor Exam: strength 5/5 throughout Psych affect normal Psych Narrative: Very pleasant, appropriately interactive Weight / BMI Weight Weight: 80.4 kg Body Mass Index (BMI) 26.9 ABG / Lab / Microbiology Data 06/06/23 04:31 06/06/23 04:31 Laboratory: Laboratory Results - last 24 hr 06/06/23 04:31: WBC 16.9 H, RBC 5.00, Hgb 15.5, Hct 43.9, MCV 87.8, MCH 31.0, MCHC 35.3, RDW Std Deviation 43.3, RDW Coeff of Purnima 13.4, Plt Count 320, MPV 9.7, Immature Gran % (Auto) 0.500, Neut % (Auto) 74.1 H, Lymph % (Auto) 15.4 L, [place] % (Auto) 9.1, Eos % (Auto) 0.7, Baso % (Auto) 0.2, Absolute Neuts (auto) 12.5 H, Absolute Lymphs (auto) 2.59, Nucleated RBC % 0, Differential Comment SCANNED, Diff Path Review March, Sodium 141, Potassium 4.4, Chloride 109 H, Carbon Dioxide 28.0, Anion Gap 4 L, BUN 14, Creatinine 1.02, Estim Creat Clear Calc 70.78, Est GFR (MDRD) Af Amer 94, Est GFR (MDRD) Non-Af 78, BUN/Creatinine Ratio 13.7, Glucose 98, Calcium 8.3 L, Phosphorus 2.8, Magnesium 2.1, Total Bilirubin 0.90, AST 203 H, ALT 52, Alkaline Phosphatase 95, Total Protein 6.0 L, Albumin 3.4, Globulin 2.6, Albumin/Globulin Ratio 1.3, TSH 1.36 Radiography Diagnostic Testing: Radiology Impression Echocardiogram 06/05/23 10:59 Interpretation Summary The estimated ejection fraction is 50-55 %. No evidence for diastolic dysfunction. Trivial mitral valve insufficiency. Ordering Physician: Marilou Ortiz Performed By: Dionicio Sawyer and Student D/C Instructions Discharge Diet: Low fat / Low cholesterol Discharge Activity: Return to Normal Activity Return to work on: 06/09/23 Meaningful Use Info Meaningful Use Diagnoses (Choose all that apply): AMI AMI/Post PCI/Angioplasty Aspirin given w/in 24hrs of arrival?: Yes ASA at discharge?: Yes Antiplatelet Therapy at Discharge:: Yes Statins at discharge?: Yes Jer/ARB at discharge?: No Reason Jer/ARB not ordered:: Hypotension Beta Can at discharge?: Yes Done w/ Acute [place] measure.: Yes Documented LVEF (%): 50 Discharge Plan Admission Admit Date/Time: 06/05/23 07:16 Primary Reason for Your Visit: Chest pain Attending Provider: Marilou Ortiz Primary Care Provider: Antoni Cooper Consulting Providers: Norma Berumen Discharge Orders/Prescriptions Prescriptions: New atorvastatin 80 mg Tablet 80 mg PO QHS Qty: 30 1RF aspirin 81 mg Tablet,Delayed Release (Dr/Ec) 81 mg PO BREAKFAST Qty: 0 0RF carvedilol 3.125 mg Tablet 3.125 mg PO BID Qty: 60 1RF Brilinta 90 mg Tablet 90 mg PO BID Qty: 60 1RF Referrals / Follow Up: Antoni Cooper DO [Primary Care Provider] - Within 1 Month Beba Garay PA [Med Staff - Adv Practice Prof] - 06/20/23 1:00 am Disposition Disposition (needs filled in before D/C Order can be placed): Home, Self Care Charges/Coding Visit Charges Inpatient E&M: 68449 Disch Hosp >30min
--- NOTE | 2023-06-06 14:15 | CASEMGMT ---
Addendum entered by Rafaela Ruiz 06/06/23 20:23: 1530: Per Dec in pharmacy, cost of refills after the use of the 30-day savings card on Brilinta is $47/month. Pt made aware. Original Note: RN CM WIRE INSPECTOR CM to room to meet with patient for initial transition planning/care coordination assessment. RN LENNOX introduced self and role at [facility].? Pt voices understanding and consents to assessment at this time.? Pt resting in bed in no distress at this time.? Pt is A/O at this time and answers all questions appropriately.?? Care providers, pharmacy, and demographics verified/updated at this time. PCP: Dr Cooper Specialists:none Preferred Pharmacy: [facility] Retail Insurance: [employer] Prescription Benefit:?Yes. Pt to discharge home on Brilinta. Discussed Brilinta 30-day savings card and made aware [facility] pharm will apply card.Pt made aware, if refills are not affordable, to discuss other options w/candle molder. He voices understanding. Living Will/HPOA:? Pt does not currently have LW/HCPOA. LNOK: 3 children. Son, Jorge Luis. Dtr, Brittni, who is a nurse Living Arrangements: Lives w/son, Jorge Luis, in one-story home w/2 steps to enter. Independent. Transportation: Pt states drives self and states no transportation concerns at this time.? DME: ? Denies using any DME and denies needs.? HHC/SNF: No hx of either. No needs identified. Pt wishes to return home and states has no concerns with going home at time of discharge.? Pt voices no further concerns/needs at this time.? PLAN: ?Home Gricelda VARGAS RN, CM
[2023-06-09 12:26] LABS: Pathologist Review Reviewed
== END 2023-06-06 15:45 | disposition home or self-care (01) | DRG 247 ==
LOC: ED 07:07 → ICU 07:13
PROVIDERS: Specialist; Admitting Provider Internal Medicine; Emergency Provider Student in an Organized Health Care Education/Training Program; PCP Family Medicine; Visit Provider Internal Medicine
DX: I21.4 Non-ST elevation (NSTEMI) myocardial infarction (principal); D72.829 Elevated white blood cell count, unspecified; K76.0 Fatty (change of) liver, not elsewhere classified; F17.210 Nicotine dependence, cigarettes, uncomplicated; K21.9 Gastro-esophageal reflux disease without esophagitis; I10 Essential (primary) hypertension; I25.10 Atherosclerotic heart disease of native coronary artery without angina pectoris; E78.5 Hyperlipidemia, unspecified; R07.9 Chest pain, unspecified; R73.9 Hyperglycemia, unspecified; Z79.82 Long term (current) use of aspirin
CPT/HCPCS: 71045; 71275; 74174; 80048; 80053; 80061; 80076; 83036; 83690; 83735; 84100; 84443; 84484; 85025; 85610; 85730; 92928; 92973; 93005; 93306; 93454; 94668; 99152; 99153; 99252; 99285; C1757; C1874; J7030; J7040; Q9957; Q9967; A4216; C1725; C1769; C1887; C1894; C8929; C9600; G0463; J1327; J2405

== ENCOUNTER → 2023-12-06 | Outpatient (CLI) | payer MEDICARE, SELFPAY ==
--- OUTSIDE RECORDS SUMMARY | 2023-12-06 08:16 | XMS RPT_ITS | CCD ---
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 0 06/06/2023 Active atorvastatin 80 mg oral tablet (1 source) HMG-CoA Reductase Inhibitor Start: 06-06-2023 atorvastatin (Lipitor) 80 MG tablet Take 80 mg by mouth. 0 06/06/2023 Active carvedilol 3.125 mg oral tablet (1 source) alpha-Adrenergic Can, beta-Adrenergic Can Start: 06-06-2023 carvedilol (Coreg) 3.125 MG tablet Take 3.125 mg by mouth. 0 06/06/2023 Active pantoprazole 40 mg delayed release oral tablet (2 sources) Proton Pump Inhibitor Start: 05-14-2023 End: 11-10-2023 take 1 tablet by mouth once daily pantoprazole (ProtoNix) 40 MG EC tablet Take 1 tablet (40 mg) by mouth daily. Do not crush, chew, or split. 30 tablet 0 05/14/2023 11/10/2023 Active ticagrelor 90 mg oral tablet (1 source) Start: 06-06-2023 ticagrelor (Brilinta) 90 MG tablet Take 90 mg by mouth. 0 06/06/2023 Active Completed/Discontinued Medications Medication Drug Class(es) Dates Sig (Normalized) Sig (Original) 12 hr buPROPion hydrochloride 150 mg extended release oral tablet (2 sources) Aminoketone Start: 05-14-2023 End: 07-13-2023 take 1 tablet by mouth twice daily buPROPion SR (Wellbutrin SR) 150 MG 12 hr tablet Take 1 tablet (150 mg) by mouth 2 times daily. Do not crush, chew, or split. 60 tablet 3 05/14/2023 06/19/2023 Discontinued (Med list cleanup) Problems Active Problems Problem Classification Problem Date Documented Da te Episodic/Chronic Administrative/social admission (5 sources) Patient encounter status; Translations: [Tobacco abuse counseling] Onset: 3 05-14-2023 Episodic Coronary atherosclerosis and other heart disease (4 sources) Coronary arteriosclerosis; Translations: [Atherosclerotic heart disease of [place] coronary artery without angina pectoris] Onset: 3 06-19-2023 Chronic Disorders of lipid metabolism (5 sources) Hypercholesterolemia; Translations: [Pure hypercholesterolemia, unspecified] Onset: 3 05-14-2023 Chronic Diverticulosis and diverticulitis (3 sources) Diverticular disease; Translations: [Diverticulosis of intestine, part unspecified, without perforation or abscess without bleeding] Onset: 3 05-14-2023 Chronic Esophageal disorders (1 source) Gastroesophageal reflux disease without esophagitis; Translations: [Gastro-esophageal reflux disease without esophagitis] 06-19-2023 Chronic Other and unspecified benign neoplasm (1 source) History of polyp of colon; Translations: [Personal history of colonic polyps] 05-14-2023 Episodic Other and unspecified benign neoplasm (2 sources) Personal history of colonic polyps; Translations: [Personal history of colonic polyps] Onset: 3 Episodic Other connective tissue disease (1 source) Plantar fasciitis of right foot; Translations: [Plantar fascial fibromatosis] 05-14-2023 Episodic Other connective tissue disease (2 sources) Plantar fascial fibromatosis; Translations: [Plantar fascial fibromatosis] Onset: 3 Episodic Other gastrointestinal disorders (2 sources) Heartburn; Translations: [Heartburn] Onset: 3 Episodic Other liver diseases (2 sources) Non-alcoholic fatty liver; Translations: [Fatty (change of) liver, not elsewhere classified] Onset: 3 06-19-2023 Chronic Other screening for suspected conditions (not mental disorders or infectious disease) (4 sources) Encounter for screening for malignant neoplasm of prostate; Translations: [Encounter for screening for malignant neoplasm of respiratory organs] Onset: 3 Episodic Screening and history of mental health and substance abuse codes (3 sources) Ex-smoker; Translations: [Personal history of nicotine dependence] Onset: 3 06-19-2023 Episodic Substance-related disorders (3 sources) Smoker; Translations: [Nicotine dependence, unspecified, uncomplicated] Onset: 3 05-14-2023 Chronic Past or Other Problems Problem Classification Problem Date Documented Da te Episodic/Chronic Other gastrointestinal disorders (2 sources) Heartburn; Translations: [Heartburn] Onset: 06-19-2023 Resolved: 06-19-2023 05-14-2023 Episodic Results Test Name Value Interpretation Reference Range Facil ity Vital Signs Date Time Vital Sign Value Performing Clinician Faci lity 06-19-2023 11:06-0400 Body height 172.7 cm Antoni Cooper [employer] Phone: [facility] 06-19-2023 11:06-0400 Body mass index (BMI) [Ratio] 26.15 kg/m2 Antoni Cooper [employer] Phone: [facility] 06-19-2023 11:06-0400 Body temperature 97.3 [degF] Antoni Cooper [employer] Phone: [facility] 06-19-2023 11:06-0400 Body weight 78.02 kg Antoni Cooper [employer] Phone: [facility] 06-19-2023 11:06-0400 Diastolic blood pressure 65 mm[Hg] Antoni Cooper [employer] Phone: [facility] 06-19-2023 11:06-0400 Heart rate 55 /min Antoni Cooper [employer] Phone: [facility] 06-19-2023 11:06-0400 SaO2% (BldA) [Mass fraction] 97 % Antoni Cooper DO Work Phone: [facility] 06-19-2023 11:06-0400 Systolic blood pressure 110 mm[Hg] Antoni Cooper DO Work Phone: [facility] [employer] 05-14-2023 16:01-0400 Body height 172.7 cm Antoni Cooper DO Work Phone: [facility] [employer] 05-14-2023 16:01-0400 Body mass index (BMI) [Ratio] 26.61 kg/m2 Antoni Cooper DO Work Phone: [facility] [employer] 05-14-2023 16:01-0400 Body temperature 98.4 [degF] Antoni Cooper DO Work Phone: [facility] [employer] 05-14-2023 16:01-0400 Body weight 79.38 kg Antoni Cooper DO Work Phone: [facility] [employer] 05-14-2023 16:01-0400 Diastolic blood pressure 72 mm[Hg] Antoni Cooper DO Work Phone: [facility] [employer] 05-14-2023 16:01-0400 Heart rate 74 /min Antoni Cooper DO Work Phone: [facility] [employer] 05-14-2023 16:01-0400 SaO2% (BldA) [Mass fraction] 95 % Antoni Cooper DO Work Phone: [facility] [employer] 05-14-2023 16:01-0400 Systolic blood pressure 126 mm[Hg] Antoni Cooper DO Work Phone: [facility] [employer] Encounters Encounter Date Encounter Type Care Provider Facility Start: 06-19-2023 End: 06-19-2023 ambulatory ANTONI ALLISON [facility] Start: 06-19-2023 End: 06-19-2023 Office outpatient visit 25 minutes Antoni Cooper DO Work Phone: [facility] Family Medicine Procedures Date Procedure Procedure Detail Performing Clinician Start: 01-25-2020 Colonoscopy Antoni ceron DO Work Phone: Plan of Treatment Date Care Activity Detail Author Start: 01-25-2030 Screening for malignant neoplasm of colon [facility] Start: 08-01-2023 Influenza vaccination [facility] Start: 06-19-2023 End: 06-19-2024 Comprehensive metabolic 1998 panel - Serum or Plasma Comprehensive metabolic panel Lab Routine Hypercholesterolemia Expected: 06/19/2023 (Approximate), Expires: 06/19/2024 [facility] Payers Date Payer Category Payer Medicare ANTH MEDICARE ADVANTAGE [employer] [id number] 2023-Present [address] [place] [address] Medicare HMO [id number] 2023 Medicare [id number] Social History Date Type Detail Facility Start: 11-18-1978 Tobacco smoking status NHIS Smokes t obacco daily [facility] Start: 11-18-1978 History of tobacco use Cigarette Smo ker [facility] Start: 05-14-2023 Tobacco use and exposure Smokeless t obacco non-user [facility] Start: 05-14-2023 End: 06-19-2023 Alcohol intake Current drinker of alcohol (finding) [facility] Start: 05-14-2023 End: 06-19-2023 Alcohol intake [facility] Start: 1960 Sex Assigned At Not on file [facility] Start: 06-19-2023 Gender identity Not on file [facility] Start: 05-04-2023 End: 06-19-2023 Exposure to SARS-CoV-2 (event) Not sure [facility] History of Present illness Narrative 06-19-2023 Antoni Lee DO Allison - 06/19/2023 11:00 AM EDT Note Date & Type Note Facility 06-19-2023 History of Presen t illness Narrative Images from the original note were not included. [facility] [address] [facility] [address] Visit type: Established Patient Reason for Visit: Hospital Follow-up Assessment / Plan: Carlos was seen today for hospital follow-up. Diagnoses and all orders for this visit: Coronary artery disease involving [place] coronary artery of [place] heart without angina pectoris (Primary) Comments: Stable, follow-up with cardiology. Continue Brilinta, carvedilol, atorvastatin and aspirin Hypercholesterolemia Comments: Stable, check lab 3 months Orders: - Lipid panel; Future - Comprehensive metabolic panel; Future - Lipid panel - Comprehensive metabolic panel Gastroesophageal reflux disease without esophagitis Comments: Much improved, Protonix for 3 months and then decrease to as needed Ex-smoker Nonalcoholic fatty liver Comments: Noted, ultrasound of abdomen after reviewing records from hospital Length of service 35 minutes reviewing records, patient interview exam and discussion of diagnosis and treatment options. Might need upper endoscopy if Protonix is necessary in a few months. Subjective: Patient ID: Carlos Hernandez is a 62 y.o. male. HPI long-term smoker presents to the office after having acute coronary syndrome with non-ST segment elevation [place]. Positive troponins and taken to heart cath urgently where he underwent a left coronary artery diagonal branch 1 thrombectomy and stent in [place] Sent home on usual meds and feeling quite better. No recurrent chest pain shortness of breath or diaphoresis nausea or vomiting. Review of Systems questions the cardiac rehab. Feels well. 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 Does not lift a lot at work he does more taping of note he is stopped smoking the day he was admitted to the hospital. States his LDL was 200. Tolerating Lipitor and Brilinta. Of note he states he took Protonix and had immediate relief of his heartburn. Still on that med and feels quite well. No acid reflux. That heartburn was quite different than his angina. His angina presented with exertional bilateral chest pain nausea diaphoresis and vomiting. Of note had some abnormal findings on CT of the chest reflecting probable fatty liver but ultrasound might beneeded. Patient says he had 1 in the hospital. No Known Allergies Current Outpatient Medications on File Prior to Visit Medication Sig Dispense Refill aspirin 81 MG EC tablet Take 81 mg by mouth. atorvastatin (Lipitor) 80 MG tablet Take 80 mg by mouth. carvedilol (Coreg) 3.125 MG tablet Take 3.125 mg by mouth. pantoprazole (ProtoNix) 40 MG EC tablet Take 1 tablet (40 mg) by mouth daily. Do not crush, chew, or split. 30 tablet 0 ticagrelor (Brilinta) 90 MG tablet Take 90 mg by mouth. [DISCONTINUED] buPROPion SR (Wellbutrin SR) 150 MG 12 hr tablet Take 1 tablet (150 mg) by mouth 2 times daily. Do not crush, chew, or split. (Patient not taking: Reported on 06/19/2023) 60 tablet 3 No current facility-administered medications on file prior to visit. Patient Active Problem List Diagnosis CAD (coronary artery disease) Hypercholesterolemia Nonalcoholic fatty liver Social History Tobacco Use Smoking status: Every Day Types: Cigarettes Start date: 11/18/1978 Smokeless tobacco: Never Substance Use Topics Alcohol use: Yes Alcohol/week: 3.0 standard drinks of alcohol Past Surgical History: Procedure Laterality Date COLONOSCOPY 01/2020 Dr. Marisel pineda . 2 polyps CORONARY STENT PLACEMENT 05/2023 LCA stent HERNIA REPAIR Right 1958 Family History Problem Relation Name Age of Onset Stroke Mother age 75- smoke and ETOH use Suicide Father age 60 No Known Problems Sister Cleo No Known Problems Brother Lit Cancer Brother Half-brother ? type Objective: BP 110/65 Pulse 55 Temp 36.3 C (97.3 F) (Temporal) Ht 5' 8 (1.727 m) Wt 172 lb (78 kg) SpO2 97% BMI 26.15 kg/m Physical Exam pleasant alert and cooperative. Recheck blood pressure stable. Nonicteric. Moist mucous membranes. No JVD adenopathy carotid bruits. Heart is regular without gallops murmurs or ectopy. Lungs are clear without rales wheezes or egophony. Abdomen soft nontender without pain hepatosplenomegaly masses or bruits. Femoral pulses good. No extremity edema. Reviewed recent records extensively with patient documented in this encounter [facility] History of Present illness Narrative 05-14-2023 Antoni Cooper DO - 05/14/2023 4:00 PM EDT Note Date & Type Note Facility 05-14-2023 History of Presen t illness Narrative Images from the original note were not included. [facility] [address] [facility] [id number] Visit type: Established Patient Reason for Visit: Follow-up (Check up ) Assessment / Plan: Carlos was seen today for follow-up. Diagnoses and all orders for this visit: Annual physical exam (Primary) - CBC auto differential; Future - Comprehensive metabolic panel; Future - Lipid panel; Future - PSA Screening; Future - CBC auto differential - Comprehensive metabolic panel - Lipid panel - PSA Screening Hypercholesterolemia Comments: Noted, low-fat meals. Recheck lab Orders: - Lipid panel; Future - Lipid panel Diverticulosis Comments: Stable, high-fiber low residue diet Hx of colonic polyps Comments: We will check on timing of C-scope Pyrosis Comments: Recurrent, stop smoking, conservative measures discussed 1 month of Protonix. Might need EGD. Call with update in 1 month Smoker Comments: Recurrent, Wellbutrin and CT of the chest Plantar fasciitis, right Comments: Recurrent, mild, stretches Prostate cancer screening - PSA Screening; Future - PSA Screening Encounter for smoking cessation counseling Screening for lung cancer Other orders - buPROPion SR (Wellbutrin SR) 150 MG 12 hr tablet; Take 1 tablet (150 mg) by mouth 2 times daily. Do not crush, chew, or split. - pantoprazole (ProtoNix) 40 MG EC tablet; Take 1 tablet (40 mg) by mouth daily. Do not crush, chew, or split. Subjective: Patient ID: Carlos Hernandez is a 62 y.o. male. HPI long-term smoker presents for first-time physical by myself. Past medical, past surgical, family social history reviewed and chart updated. Overall feeling well. Has a few orthopedic eval's including the painful right foot, chronic intermittent heartburn. He questions about his colonoscopy. Review of Systems denies loss of appetite or weight. No night sweats fevers or chills. No recurrent earache or sore throat. Rarely ill. Denies chronic cough phlegm or wheezing. No dyspnea chest pain palpitations. Having some heartburn. No early satiety or pain. No melena or blood. Bowels are regular. Resolved left quadrant pain for 3 years ago. Had some colonic polyps on C-scope and diverticular disease. No dysuria hematuria. No postvoid dribbling or nocturia. Not to mid body aches for somebody works hard. Rare use of Advil or Aleve. Having some plantar fascia symptoms. No Known Allergies No current outpatient medications on file prior to visit. No current facility-administered medications on file prior to visit. There is no problem list on file for this patient. Social History Tobacco Use Smoking status: Every Day Types: Cigarettes Start date: 11/18/1978 Smokeless tobacco: Never Substance Use Topics Alcohol use: Yes Alcohol/week: 3.0 standard drinks of alcohol Past Surgical History: Procedure Laterality Date COLONOSCOPY 01/2020 Dr. Marisel pineda . 2 polyps HERNIA REPAIR Right 1958 Family History Problem Relation Name Age of Onset Stroke Mother age 75- smoke and ETOH use Suicide Father age 60 No Known Problems Sister Cleo No Known Problems Brother Lit Cancer Brother Half-brother ? type Objective: BP 126/72 (BP Location: Left arm, Patient Position: Sitting, BP Cuff Size: Small adult) Pulse 74 Temp 36.9 C (98.4 F) (Temporal) Ht 5' 8 (1.727 m) Wt 175 lb (79.4 kg) SpO2 95% BMI 26.61 kg/m Physical Exam The physical exam is generally normal. Patient appears well, alert and oriented x 3, pleasant, cooperative. Vitals are as noted. No carotid bruits. Neck supple, no abnormal adenopathy, thyroid lesions or masses. Ears, nose and throat are normal without acute findings. Lungs are clear to auscultation. Heart is regular, without murmurs, gallops or ectopy. Abdomen is soft, non tender, without masses, hepatosplenomegaly, or bruits. Normal BS evident. Extremities are normal without edema. Peripheral pulses are fair. No worrisome skin lesions. Screening neurological exam is normal without focal deficits. Rectal exam revealed small prostate without nodules. No rectal masses. Painful plantar fascia on the right foot. No deformity. Nontender metatarsals and heel. Pulse color and temperature of the feet are normal. No deficits in strength. 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 This clinical summary was aggregated from multiple sources. Caution should be exercised in using it in the provision of clinical care. This summary normalizes information from multiple sources, and as a consequence, information in this document may materially change the coding, format and clinical context of patient data. In addition, data may be omitted in some cases. CLINICAL DECISIONS SHOULD BE BASED ON THE PRIMARY CLINICAL RECORDS. [employer] provides no warranty or guarantee of the accuracy or completeness of information in this document.
[2023-12-06 09:11] LABS: AST(SGOT) 17 U/L (15-37); Alanine Aminotransfer ALT/SGPT 41 U/L (16-61); Albumin, Serum 3.6 g/dL (3.2-5.0); Alkaline Phosphatase 97 U/L (45-117); Bilirubin, Direct 0.13 mg/dL (0.00-0.30); Cholesterol 115 mg/dL (200); Globulin 3.3 g/dL (2.2-4.2); High Density Lipoprotein 36 mg/dL; Protein, Total 6.9 g/dL (6.4-8.2); Triglycerides 99 mg/dL; Very Low Density Lipoprotein 20 mg/dL (5-40)
== END | disposition home or self-care (01) ==
LOC: LAB 08:14
PROVIDERS: PCP Family Medicine; Referring Provider Physician Assistant Medical; Visit Provider Physician Assistant Medical
DX: I25.10 Atherosclerotic heart disease of native coronary artery without angina pectoris (principal); E78.5 Hyperlipidemia, unspecified
CPT/HCPCS: 36415; 80061; 80076